=== PATIENT | female | born 1975 | race Caucasian/White ===

== ENCOUNTER → 2019-11-16 17:31 | Outpatient (CLI) | payer OTHER, SELFPAY ==
--- NOTE | 2019-11-16 | DI.MRI.S_ITS ---
PROCEDURE: MR TMJ WO CON INDICATIONS: JAW PAIN TECHNIQUE: Axial T1 spin echo, coronal and sagittal PD fast spin echo through the temporomandibular joints, in both the closed- and open-mouth positions. COMPARISON: None. FINDINGS: Image quality: Limited by patient motion artifact and poor mouth opening. Right: Joint is normally aligned on closed and open-mouth positioning, however mouth is only slightly opened beyond closed mouth position and evaluation of the joint and the open-mouth position is limited. Articular disk demonstrates normal location and morphology. Trace right TMJ joint effusion is noted. No bony erosions or osteophytes. Left: Joint is normally aligned on closed and open-mouth positioning, however mouth is only slightly opened beyond closed mouth position and evaluation of the joint and the open-mouth position is limited. Articular disk demonstrates normal location and morphology. No bony erosions or osteophytes. Partially visualized bilateral level II enlarged neck lymph nodes. IMPRESSION: 1. Image quality limited by patient motion artifact and suboptimal mouth opening. 2. No evidence of articular disc displacement. 3. Trace nonspecific right temporomandibular joint effusion. 4. Large bilateral level II neck lymph nodes which could be reactive or neoplastic. Dictated by: Soni Dias MD, PhD on 11/17/2019 at 12:08 Approved by: Soni Disa MD, PhD on 11/17/2019 at 12:15
== END ==
PROVIDERS: PCP Family Medicine; Referring Provider Dentist Oral and Maxillofacial Surgery; Visit Provider Dentist Oral and Maxillofacial Surgery
DX: R68.84 Jaw pain (principal); R59.0 Localized enlarged lymph nodes
CPT/HCPCS: 70336

== ENCOUNTER → 2021-10-29 11:18 | Outpatient (CLI) | payer OTHER, SELFPAY ==
[2021-10-29 12:08] LABS: COVID19 -Nasal RAPID Negative (Negative)
== END ==
PROVIDERS: PCP Family Medicine; Visit Provider Obstetrics & Gynecology
DX: Z01.812 Encounter for preprocedural laboratory examination (principal); Z20.822 Contact with and (suspected) exposure to COVID-19
CPT/HCPCS: 87635

== ENCOUNTER 2021-10-30 12:24 | Day surgery (SDC) | payer OTHER, SELFPAY ==
[2021-10-29 09:54] VITALS: BMI 31.2
[2021-10-30] VITALS (13 sets, daily range): BP systolic 97–133; BP diastolic 42–80; PULSE 87–115; RESP 12–18; TEMP 36.1–37.5; O2SAT 90–100; BMI 31.2
--- NOTE | 2021-10-30 | PATH_ITS ---
[facility] Accession Number: [id number] . 01 Material submitted: . uterus - CERVIX, UTERUS, BILATERAL FALLOPIAN TUBE REMNANTS . 02 Diagnosis: A. Uterus, Cervix, Bilateral Fallopian Tube Remnants, Hysterectomy and Bilteral Salpingectomy: Myometrium with leiomyoma(s) (up to 8 cm). Nonproliferative benign endometrium with cystic atrophy. Portions of bilateral fallopian tubes with endometrial stroma within muscular wall of one fallopian tube, hydrosalpinx, and benign paratubal cysts; see comment. Inflamed cervix with reactive changes. Negative for dysplasia and malignancy. . COMMENT: Benign endometrial stroma with associated hemorrhage is present within the muscular wall of one fallopian tube which also shows hydrosalpinx. While the features are highly suspicious for endometriosis involving fallopian tube, involvement of the fallopian tube secondary to shedding endometrium and hydrosalpinx cannot be entirely excluded. Clinical corelation is necessary. [facility] 11/04/2021 1426 Local . 02 Electronically signed: . Yasmin Mcintosh MD, Pathologist NPI- [id number] . 01 Gross description: . The specimen is received in formalin, labeled with the patient's name and cervix, uterus, bilateral fallopian tube remnants, is composed of multiple fragments of morcellated uterus which weighs 476 grams. The specimen is received in multiple fragments and measures 19.0 x 16.0 x 6.0 cm in aggregate. An apparent ectocervix is identified. The ectocervix measures 3.5 x 2.2 cm. The cervical os is slit-like and measures 1.0 x 0.1 cm. The ectocervical mucosa is cohen-white and smooth. An anterior and a posterior aspect cannot be made out. The fragment with cervix is bivalved to reveal a cohen-pink endometrial cavity which measures 4.0 x 0.2 cm. Sorter/Assay Tech sections of the cervix and endocervix are submitted. A fallopian tube is identified on one of the fragments and it measures 3.0 cm in length by 0.7 cm in diameter. The surface is cohen-white, smooth and shiny. Sectioning reveals pinpoint lumen. A possible paratubal cyst measuring 0.6 x 0.5 cm is identified and is filled with clear fluid. Sorter/Assay Tech sections of the fallopian tube and the cyst are submitted. Fimbriae are not identified. A second fallopian tube is identified on one of the larger fragments. It measures 2.7 cm in length by 0.5 cm in diameter. The serosal surface is cohen-pérez and smooth. Sectioning reveals a pinpoint lumen. Sorter/Assay Tech sections are submitted. One of the fragments show cohen-brown to cohen-white possible endometrium which measures 4.5 x 1.0 cm. No discrete lesions are identified. Sorter/Assay Tech sections submitted. The rest of the fragments are composed of cohen-white whorled nodules which range in size from 8.0 x 7.0 x 6.0 cm to 0.5 x 0.5 x 0.5 cm. The cut surface is cohen-white and whorled without areas of necrosis, cystic degeneration or hemorrhage. In the largest fragment, the largest nodule appears to be subserosal. Sorter/Assay Tech sections submitted. . Summary of Sections: A1 - Cervix. A2 - Possible endocervical mucosa. A3 - First fallopian tube with possible paraovarian cyst. A4 - Second fallopian tube. A5-A6 - Possible endomyometrium. A7-A9 - Sorter/Assay Tech sections of leiomyomas. ([id number] ) /MRV 10/31/[address] [place] [address] . 02 Pathologist provided ICD-10: D25.9 . 02 CPT . 988515 Specimen Comment: A courtesy copy of this report has been sent to [phone] Performed at: 01 [facility] [address] [id number] MD Armin Graves MD Phone: [phone] Performed at: 02 [facility] [address] [place], [place] [id number] MD Lianna Hill MD Phone: [phone]
[2021-10-30] MEDS: LACTATED RINGERS 1,000 ML 100 ML IV ×3 (13:01→16:50)
[2021-10-30 13:22] LABS: Add Manual Diff / Slide Review NO; Basophils Absolute Auto 100 /uL (0-100); Basophils Percent Auto 0.8 % (0-2); Eosinophils Absolute Auto 100 /uL (0-450); Hematocrit 35.5 % (36-46); Hemoglobin 11.1 g/dL (12.0-16.0); Lymphocytes Absolute Auto 2500 /uL (1100-4500); Lymphocytes Percent Auto 34.5 % (25-40); Mean Corpuscular HGB Conc 31.2 % (30-36); Mean Corpuscular Hemoglobin 21.6 PG (26-34); Mean Corpuscular Volume 69.2 fL (80-100); Monocytes Absolute Auto 800 /uL (0-900); Monocytes Percent Auto 10.6 % (3-14); Neutrophils Absolute Auto 3800 /uL (1500-7000); Neutrophils Percent Auto 52.1 % (50-75); Platelet Count 319 X10^3/uL (150-400); Red Blood Cell Count 5.13 X10^6/uL (4.0-5.2); White Blood Cell Count 7.3 X10^3/uL (4.5-11.0)
--- NOTE | 2021-10-30 13:26 | PM.PREOP ---
Pre-operative Note COVID-19 COVID-19 status: Negative Result date/Date tested (Pos, Neg/Pending): 10/29/21 Criteria for continued procedure: Non-surgical alternatives not available or appropriate per current SOC Interval Note History & Physical reviewed/Exam performed by Physician: Yes Changes to H&P: No
[2021-10-30 13:42] LABS: Anisocytosis 1+; Hypochromasia 2+; Poikilocytosis 1+
[2021-10-30 13:45] LABS: BUN Creatinine Ratio 10.2 (6-22); Blood Urea Nitrogen 9 mg/dL (7-17); Calcium 9.1 mg/dL (8.4-10.2); Carbon Dioxide 25 mmol/L (22-32); Chloride 107 mmol/L (98-107); Estimated Glomerular Filt Rate > 60.0 mL/min (>60); Glucose 97 mg/dL (70-100); HEMOLYSIS < 15 (0-50); Potassium 4.7 mmol/L (3.4-5.1); Sodium 139 mmol/L (137-145)
--- NOTE | 2021-10-30 13:53 | SUR.OPER ---
Lithotomy on padded OR bed. Nunica Pad Positioner under torso. Head on pillow, arms padded and tucked at sides. Legs secured in padded yellow fins stirrups.
[2021-10-30] MEDS: CEFAZOLIN 2 GM/20 ML SYRINGE IV (14:22)
[2021-10-30] MEDS: BUPIVACAINE 0.5% (PF) 30 ML, EPINEPHrine 0.15 MG INJ (14:46)
--- NOTE | 2021-10-30 17:30 | PM.GYNOP.1 ---
Operative Date/Time/Diagnoses Date of procedure: 11/01/21 Time of procedure: 14:30 Pre-op diagnosis: uterus with large fundal fibroid, chronic iron deficiency anemia in the setting of menorrhagia. Post-op diagnosis: same Procedure & Clinicians Procedure: Procedures Operation Date: 10/30/21 13:30 Actual Procedure Side Surgeon p Laparoscopic Assisted Vaginal Hysterectomy w. bilateral removal of fallopian tube remnants Felisha Barragan MD Indications: chronic iron deficiency in the setting of large uterine fibroid and menorrhagia Surgeon: Felisha Barragan Newspaper Delivery Counselor: José Antonio Kramer Anesthesia Type: General Operative Notes Findings: Large multifibroid uterus with large fundal, midline fibroid approx. 10cm in size. Normal vulva, vagina, cervix. Normal fallopian tube remnants, ovaries. Normal abdominal survey, though appendix not visualized. N Closure Type: primary Specimen(s): portion of left tube, portion of right tube and uterus Applied: catheter Estimated blood loss (mL): 750 Procedure in detail: After proper consents were obtained, the patient was taken to the operating room. General anesthesia was induced, and she was placed in the dorsal lithotomy position and prepped and draped in the normal sterile fashion. A mendoza catheter was placed, and a speculum placed in the patient's vagina. A single tooth tenaculum was applied to the anterior lip of the cervix, and hegar dilators used to dilate the cervix to 6mm with gentle pressure. A uterine manipulator was gently inserted and the balloon inflated to 5ccs. The tenaculum and speculum were removed from the vagina. Attention was then turned to the abdomen, where 1cc of .25% marcaine with epinephrine was used to infiltrate the skin just below the umbilicus. A scalpel was used to make a 5mm incision, towel clamps were applied and used to elevate the anterior abdominal wall, and a Veress needle gently inserted into the abdomen. Intraperitoneal placement was confirmed with a drop of normal saline passed through the veress needle with gravity, and CO2 used to insufflate the abdomen to 15mmHg. A 5mm trocar and sleeve were placed into the abdomen through this incision, using the towel clamps to elevate the abdominal wall, and intraperitoneal placement was confirmed visually with insertion of the laparoscope. Abdominal survey at this time was normal, and lateral ports were placed under direct visualization. These were placed on the left and right, 8cm from the umbilicus and after infiltration of 1mm of local anesthetic as above. The patient was placed in trendelenburg position, and a blunt probe used to gently push the bowel out of the pelvis. The ovaries and fallopian tube remnants appeared normal bilaterally. A atraumatic grasper was used to elevate the remnant of the left fallopian tube, and a PK device was used to amputate this remnant, which was removed from the abdomen. The uteroovarian ligament and round ligaments were then cauterized and transected with this device, the anterior and posterior leaflets of the broad ligament and skeletonized and the vesicouterine peritoneum identified. This was transected and a bladder flap created with the PK device and gentle traction. The uterine arteries were identified, and cauterized at the level of the internal os. The same procedure was performed on the patient's right, without complication. Given the midline location of the fibroid, acceptable visualization was able to be obtained throughout this portion of the case. The laparoscopic field was covered with a drape, and attention then turned to the vagina. The mendoza catheter and the uterine manipulator were removed. The cervix was grasped with a double toothed tenaculum on the anterior lip and a single toothed tenaculum on the posterior lip, and the vaginal mucosa infiltrated with 1occs of 0.5% marcaine with epinephrine. An incision was made circumferentially in the vaginal mucosa, with the vaginal mucosa dissected up and away from the cervix with both blunt and sharp dissection. The peritoneal reflection was visualized posteriorly and entry into the posterior cul de sac made sharply with curved prado scissors, and a weighted speculum placed in the posterior cul de sac. The uterosacral ligaments were visualized and clamped with a Dolly clamp, divided and suture ligated using 0 vicryl. The anterior vaginal mucosa was dissected further from the cervix and an anterior colpotomy made with sharp dissection, and a right angle inserted for further retraction and protection of the bladder. The tenaculae were used to maintain downward traction on the cervix. The Dolly clamp was used to clamp the cardinal and broad ligaments, and these divided and suture ligated with 0 vicryl. Sequential bites were taken until we reached the site of laparoscopic dissection bilaterally. The cervix was brought through the vaginal cuff, and the uterus and fibroids were carefully morcellated as necessary to allow removal of the specimen. Due to the size of the fibroid, this morcellation process took 40 minutes, and was notable for significant back bleeding. The vaginal cuff was closely inspected and found to be hemostatic. The uterine artery and uterosacral pedicles were inspected and found to be hemostatic. The vaginal cuff was closed vertically with 0 vicryl in a running, locked fashion, with two sutures and making sure to incorporate the uterosacral pedicles. A mendoza catheter was replaced. Attention was then returned to abdomen, and the abdomen reinsufflated through the ports that had been left in place. The abdomen was irrigated and cleared of all clots, and the fallopian tube pedicles, vaginal cuff, and rest of the pelvis carefully inspected and found to be hemostatic. A repeat abdominal survey was normal. The laparoscope was removed from the abdomen, the insufflating gas allowed to escape, and the skin at all 3 incisions closed with 4-0 biosyn, then covered with steri strips and bandages. The mendoza catheter was found to be draining clear, light yellow urine. The patient tolerated the procedure well, all counts were correct, 2g of Ancef were given at the beginning of the case, and SCDs were in place throughout. The patient was transported to PACU in stable condition. Complications: none Post-operative Condition: stable Disposition: PACU Plan for aftercare: Routine postop care
[2021-10-30] MEDS: LACTATED RINGERS 1,000 ML 125 ML IV (18:26)
--- NOTE | 2021-10-30 18:35 | PC.NURSE ---
Patient alert, oriented denied pain and nausea. Jessica patent, patient oriented to room and call light.
[2021-10-30] MEDS: HYDROMORPHONE 1 MG INJ 0.5 MG IV (20:32)
[2021-10-30] MEDS: SODIUM CHLORIDE 0.9% FLUSH 10 ML IV (20:32)
[2021-10-30] MEDS: ALPRAZolam 0.25 MG TABLET 1 MG PO (20:35)
[2021-10-30] MEDS: IBUPROFEN 400 MG TABLET PO (20:35)
[2021-10-30] MEDS: DOCUSATE 100 MG CAPSULE PO (20:36)
[2021-10-31] VITALS (13 sets, daily range): BP systolic 97–126; BP diastolic 58–80; PULSE 75–96; RESP 16–19; TEMP 36.6–38; O2SAT 95–100
[2021-10-31] MEDS: IBUPROFEN 400 MG TABLET PO (01:51)
[2021-10-31] MEDS: HYDROMORPHONE 1 MG INJ 0.5 MG IV ×2 (01:52→07:24)
[2021-10-31] MEDS: LACTATED RINGERS 1,000 ML 125 ML IV (02:03)
--- NOTE | 2021-10-31 02:50 | PC.NURSE ---
Assumed care of patient @1900 Pt is s/p lap assisted vaginal hysterectomy with salpingectomy. 3 lap sites covered with bandaid are CDI. Abdomen is tender to touch A&Ox4 clearly makes needs known. Pt stated that she has a high tolerance for pain and rates her discomfort as 5, aching but increases to 7 with movement. Medicated for comfort and taught patient to splint with movement and cough.Mendoza catheter to be removed at 0500. Goal to sleep through shift until mendoza and labs were completed.
[2021-10-31 05:19] LABS: Add Manual Diff / Slide Review NO; Basophils Absolute Auto 0 /uL (0-100); Basophils Percent Auto 0.1 % (0-2); Eosinophils Absolute Auto 0 /uL (0-450); Hemoglobin 7.3 g/dL (12.0-16.0); Lymphocytes Absolute Auto 900 /uL (1100-4500); Lymphocytes Percent Auto 9.4 % (25-40); Mean Corpuscular HGB Conc 31.9 % (30-36); Mean Corpuscular Hemoglobin 21.7 PG (26-34); Monocytes Absolute Auto 600 /uL (0-900); Monocytes Percent Auto 6.4 % (3-14); Neutrophils Absolute Auto 7600 /uL (1500-7000); Neutrophils Percent Auto 84.1 % (50-75); Platelet Count 230 X10^3/uL (150-400); Red Blood Cell Count 3.39 X10^6/uL (4.0-5.2); Red Cell Distribution Width 19.6 % (11.6-14.8)
[2021-10-31 05:32] LABS: BUN Creatinine Ratio 11.1 (6-22); Blood Urea Nitrogen 7 mg/dL (7-17); Carbon Dioxide 26 mmol/L (22-32); Chloride 105 mmol/L (98-107); Estimated Glomerular Filt Rate > 60.0 mL/min (>60); Glucose 143 mg/dL (70-100); HEMOLYSIS < 15 (0-50); Potassium 4.2 mmol/L (3.4-5.1); Sodium 132 mmol/L (137-145)
[2021-10-31 07:16] LABS: Anisocytosis 1+; Microcytosis 2+; Poikilocytosis 1+
[2021-10-31 07:17] LABS: Ovalocytes 1+
[2021-10-31] MEDS: SODIUM CHLORIDE 0.9% FLUSH 10 ML IV ×3 (07:24→21:03)
[2021-10-31] MEDS: ESCITALOPRAM 10 MG TABLET PO (08:29)
--- NOTE | 2021-10-31 08:51 | P.PN_ITS ---
Subjective Subjective Date Patient Seen: 10/31/21 Time Patient Seen: 08:51 Interval history: This patient is admitted for a laparoscopically assisted vaginal hysterectomy in the setting of several large fibroids. The procedure was able to be completed as planned, though the patient had significant intraoperative blood loss in part due to back bleeding from the fibroids. This morning, the patient reports one episode of vaginal bleeding, but her pain is well controlled, she is eating, ambulating, and voiding, and she has passed some flatus. We discussed transition to PO pain medications and repeat CBC later this AM. Exam Vital Signs (past 8 hours): - 10/31/21 01:20 10/31/21 05:19 10/31/21 07:23 Temperature 99 F 99.5 F 99.1 F Pulse Rate 75 79 86 Respiratory Rate 16 16 19 Blood Pressure 99/63 106/71 126/80 Pulse Oximetry 96 97 100 Oxygen Delivery Method Room Air Oxygen Flow Rate 0 Const General: cooperative, healthy appearing, comfortable and well groomed Resp Effort & Inspection: normal respiratory effort Auscultation: clear to auscultation bilaterally Cardio Rate: regular rate Rhythm: regular rhythm GI Palpation: soft and No tender Other: incisions c/d/i External Female Exam: normal external appearance Other: scant dried blood on ness pad Extrem General: normal to inspection Objective Labs Result Diagrams: 10/31/21 04:40 10/31/21 04:40 Labs: Laboratory Results - last 24 hr 10/30/21 10/30/21 10/30/21 06:40 Unknown Unknown WBC 7.3 RBC 5.13 Hgb 11.1 L Hct 35.5 L MCV 69.2 L MCH 21.6 L MCHC 31.2 RDW 20.0 H Plt Count 319 Neut % (Auto) 52.1 Lymph % (Auto) 34.5 [place] % (Auto) 10.6 Eos % (Auto) 2.0 Baso % (Auto) 0.8 Neut # (Auto) 3800 Lymph # (Auto) 2500 [place] # (Auto) 800 Eos # (Auto) 100 Baso # (Auto) 100 RBC Morphology Not Reportable Hypochromasia 2+ H Poikilocytosis 1+ H Anisocytosis 1+ H Microcytosis Ovalocytes Sodium 139 Potassium 4.7 Chloride 107 Carbon Dioxide 25 BUN 9 Creatinine 0.88 Estimated GFR > 60.0 BUN/Creatinine Ratio 10.2 Glucose 97 Calcium 9.1 Blood Type A Positive Antibody Screen Negative 10/31/21 10/31/21 04:40 04:40 WBC 9.0 RBC 3.39 L Hgb 7.3 L Hct 23.0 L MCV 68.0 L MCH 21.7 L MCHC 31.9 RDW 19.6 H Plt Count 230 Neut % (Auto) 84.1 H D Lymph % (Auto) 9.4 L D [place] % (Auto) 6.4 Eos % (Auto) 0.0 L Baso % (Auto) 0.1 Neut # (Auto) 7600 H Lymph # (Auto) 900 L [place] # (Auto) 600 Eos # (Auto) 0 Baso # (Auto) 0 RBC Morphology See below Hypochromasia Poikilocytosis 1+ H Anisocytosis 1+ H Microcytosis 2+ H Ovalocytes 1+ H Sodium 132 L Potassium 4.2 Chloride 105 Carbon Dioxide 26 BUN 7 Creatinine 0.63 Estimated GFR > 60.0 BUN/Creatinine Ratio 11.1 Glucose 143 H Calcium 8.0 L Blood Type Antibody Screen [facility] Medical History Abnormal Pap smear of cervix (~2006) Anxiety (~2013) Cataracts, bilateral (~2017) Chicken pox (~1982) Chronic back pain (~2019) Colon polyps Dysplastic nevus (~2005) Frequent UTI GERD (gastroesophageal reflux disease) Heavy menstrual period (~2017) Human papilloma virus (~2006) Irregular menstrual cycle (~2017) Irritable bowel syndrome Ovarian cyst Painful menstrual periods (~2017) PTSD (post-traumatic stress disorder) Recurrent sinusitis (~1999) Wears glasses Surgical History Anesthesia H/O LEEP (~2014) History of endometrial ablation (~2006) History of nasal septoplasty (~1999) History of oral surgery (~2019) S/P tubal ligation (~1998) Skin cancer [place] teeth removed (~1999) Family History Father Colon cancer Lung cancer COPD (chronic obstructive pulmonary disease) History of heart disease Mur[place]'s esophagus Mother Depression Mental health problem Sister Depression Anxiety Mental health problem Grandfather Pneumonia Grandmother COPD (chronic obstructive pulmonary disease) Grandmother History of heart disease Daughter Anxiety Mental health problem Daughter Osteosarcoma Social History household members: spouse Smoking Status: Never smoker alcohol intake: current Assessment & Plan Post-op Postoperative Procedures: Procedures Operation Date: 10/30/21 13:30 Actual Procedure Side Surgeon p Laparoscopic Assisted Vaginal Hysterectomy w. bilateral removal of fallopian tube remnants Felisha Barragan MD Postoperative day: 1 Postoperative status: doing well Postoperative status narrative: This patient reports feeling well this AM, and is meeting postoperative goals appropriately especially given that her hysterectomy was late in the day. Her hgb and bleeding can be explained by significant intraoperative blood loss, and she has no clinical signs of ongoing bleeding. We will repeat a CBC later this AM. Postoperative plan: routine post-op care, see orders and ambulate Time Spent With Patient Time with patient: 15-24 minutes Quality VTE Deep Vein Thrombosis/Pulmonary Embolism Present on Admission: No
[2021-10-31] MEDS: OXYCODONE IR 5 MG TABLET PO ×3 (09:42→18:46)
[2021-10-31] MEDS: FERROUS SULFATE 325 MG TABLET PO (09:42)
[2021-10-31 10:21] LABS: Add Manual Diff / Slide Review NO; Basophils Absolute Auto 0 /uL (0-100); Basophils Percent Auto 0.1 % (0-2); Eosinophils Absolute Auto 0 /uL (0-450); Lymphocytes Absolute Auto 1600 /uL (1100-4500); Lymphocytes Percent Auto 13.2 % (25-40); Mean Corpuscular HGB Conc 30.9 % (30-36); Mean Corpuscular Hemoglobin 21.3 PG (26-34); Mean Corpuscular Volume 68.9 fL (80-100); Monocytes Absolute Auto 1500 /uL (0-900); Monocytes Percent Auto 12.2 % (3-14); Neutrophils Absolute Auto 9000 /uL (1500-7000); Neutrophils Percent Auto 74.5 % (50-75); Platelet Count 228 X10^3/uL (150-400); Red Blood Cell Count 3.19 X10^6/uL (4.0-5.2); Red Cell Distribution Width 19.8 % (11.6-14.8)
[2021-10-31 10:25] LABS: Hemoglobin 6.8 g/dL (12.0-16.0)
--- NOTE | 2021-10-31 10:35 | PC.NURSE ---
Addendum entered by Jacklyn Matthew R.N. 10/31/21 17:02: First unit RBC infusing as ordered, patient tolerating well. Addendum entered by Jacklyn Matthew R.N. 10/31/21 15:01: 1400 H/H 6.3/20.7 Dr Barragan paged and notified, MD up to assess patient, order for blood transfusion placed. Original Note: Patient hemoglobin 6.8, Dr Barragan paged and made aware. Patient BP 126/76 HR 83. Patient just up to the bathroom, denies an increase in lightheadedness, but states I've been light headed on and off now for months. Scant bloody drainage to ness pad.
[2021-10-31] MEDS: IRON SUCROSE 100 MG in SODIUM CHLORIDE 0.9% 100 ML 420 ML IV (11:27)
[2021-10-31 12:17] LABS: Microcytosis 2+; Ovalocytes 1+
[2021-10-31 14:42] LABS: Add Manual Diff / Slide Review NO; Basophils Absolute Auto 0 /uL (0-100); Basophils Percent Auto 0.1 % (0-2); Eosinophils Absolute Auto 0 /uL (0-450); Lymphocytes Absolute Auto 1900 /uL (1100-4500); Lymphocytes Percent Auto 16.3 % (25-40); Mean Corpuscular HGB Conc 30.6 % (30-36); Mean Corpuscular Hemoglobin 21.1 PG (26-34); Mean Corpuscular Volume 69.1 fL (80-100); Monocytes Absolute Auto 1300 /uL (0-900); Monocytes Percent Auto 11.8 % (3-14); Neutrophils Absolute Auto 8200 /uL (1500-7000); Neutrophils Percent Auto 71.8 % (50-75); Platelet Count 229 X10^3/uL (150-400); White Blood Cell Count 11.4 X10^3/uL (4.5-11.0)
[2021-10-31 14:46] LABS: Hemoglobin 6.3 g/dL (12.0-16.0)
[2021-10-31 14:47] LABS: Hematocrit 20.7 % (36-46)
--- NOTE | 2021-10-31 15:04 | P.PN_ITS ---
Subjective Subjective Date Patient Seen: 10/31/21 Time Patient Seen: 15:30 Interval history: Patient has had a small hgb drop, but we discussed transfusion of 2x pRBCs and the patient is amenable. Patient remains clinically stable, well appearing with normal vitals, no abdominal tenderness, good pain control with 2x 5mg oxycodone since admission. Exam Vital Signs (past 8 hours): - 10/31/21 07:23 10/31/21 10:34 10/31/21 14:30 Temperature 99.1 F 99.0 F Pulse Rate 86 83 89 Respiratory Rate 19 18 18 Blood Pressure 126/80 126/76 100/62 Pulse Oximetry 100 97 99 Oxygen Delivery Method Room Air Oxygen Flow Rate 0 Const General: cooperative, healthy appearing, comfortable and well groomed GI Palpation: soft and No tender External Female Exam: normal external appearance (bleeding minimal) Objective Labs Result Diagrams: 11/01/21 05:07 10/31/21 04:40 Labs: Laboratory Results - last 24 hr 10/30/21 10/31/21 10/31/21 06:40 04:40 04:40 WBC 9.0 RBC 3.39 L Hgb 7.3 L Hct 23.0 L MCV 68.0 L MCH 21.7 L MCHC 31.9 RDW 19.6 H Plt Count 230 Neut % (Auto) 84.1 H D Lymph % (Auto) 9.4 L D [place] % (Auto) 6.4 Eos % (Auto) 0.0 L Baso % (Auto) 0.1 Neut # (Auto) 7600 H Lymph # (Auto) 900 L [place] # (Auto) 600 Eos # (Auto) 0 Baso # (Auto) 0 RBC Morphology See below Poikilocytosis 1+ H Anisocytosis 1+ H Microcytosis 2+ H Ovalocytes 1+ H Sodium 132 L Potassium 4.2 Chloride 105 Carbon Dioxide 26 BUN 7 Creatinine 0.63 Estimated GFR > 60.0 BUN/Creatinine Ratio 11.1 Glucose 143 H Calcium 8.0 L Crossmatch See Detail 10/31/21 10/31/21 10:09 14:27 WBC 12.0 H 11.4 H RBC 3.19 L 3.00 L Hgb 6.8 L* 6.3 L* Hct 22.0 L 20.7 L* MCV 68.9 L 69.1 L MCH 21.3 L 21.1 L MCHC 30.9 30.6 RDW 19.8 H 20.0 H Plt Count 228 229 Neut % (Auto) 74.5 71.8 Lymph % (Auto) 13.2 L 16.3 L [place] % (Auto) 12.2 11.8 Eos % (Auto) 0.0 L 0.0 L Baso % (Auto) 0.1 0.1 Neut # (Auto) 9000 H 8200 H Lymph # (Auto) 1600 1900 [place] # (Auto) 1500 H 1300 H Eos # (Auto) 0 0 Baso # (Auto) 0 0 RBC Morphology See below Poikilocytosis Anisocytosis Microcytosis 2+ H Ovalocytes 1+ H Sodium Potassium Chloride Carbon Dioxide BUN Creatinine Estimated GFR BUN/Creatinine Ratio Glucose Calcium Crossmatch [facility] Medical History Abnormal Pap smear of cervix (~2006) Anxiety (~2013) Cataracts, bilateral (~2017) Chicken pox (~1982) Chronic back pain (~2019) Colon polyps Dysplastic nevus (~2005) Frequent UTI GERD (gastroesophageal reflux disease) Heavy menstrual period (~2017) Human papilloma virus (~2006) Irregular menstrual cycle (~2017) Irritable bowel syndrome Ovarian cyst Painful menstrual periods (~2017) PTSD (post-traumatic stress disorder) Recurrent sinusitis (~1999) Wears glasses Surgical History Anesthesia H/O LEEP (~2014) History of endometrial ablation (~2006) History of nasal septoplasty (~1999) History of oral surgery (~2019) S/P tubal ligation (~1998) Skin cancer [place] teeth removed (~1999) Family History Father Colon cancer Lung cancer COPD (chronic obstructive pulmonary disease) History of heart disease [place]'s esophagus Mother Depression Mental health problem Sister Depression Anxiety Mental health problem Grandfather Pneumonia Grandmother COPD (chronic obstructive pulmonary disease) Grandmother History of heart disease Daughter Anxiety Mental health problem Daughter Osteosarcoma Social History household members: spouse Smoking Status: Never smoker alcohol intake: current Assessment & Plan Post-op Postoperative Procedures: Procedures Operation Date: 10/30/21 13:30 Actual Procedure Side Surgeon p Laparoscopic Assisted Vaginal Hysterectomy w. bilateral removal of fallopian tube remnants Felisha Barragan MD Postoperative day: 1 Postoperative status: anemia Postoperative status narrative: Patient for transfusion of 2x pRBCs, clinically stable. s/p iron infusion. Postoperative plan: see orders Time Spent With Patient Time with patient: less than 15 minutes Quality VTE Deep Vein Thrombosis/Pulmonary Embolism Present on Admission: No
--- NOTE | 2021-10-31 15:15 | CM.IDA ---
Initial DCP Assessment Note Pt is a 46 yo female, resident of [place], now POD#1 from Laparoscopic Assisted Vaginal Hysterectomy w. bilateral removal of fallopian tube remnants by Dr Barragan PCP: Anika Keating Payer: Moe Reviewed chart, pt discussed in multidisciplinary rounds this morning. 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 According to chart review at 1500- patient receiving blood transfusion today d/t H/H 6.3/20.7; Dr Barragan to assess this afternoon/evening No needs expected from DC planning team although will remain available in case this changes before DC. BARBARA Gupta
[2021-10-31 15:31] LABS: Anisocytosis 2+; Microcytosis 1+; Ovalocytes 2+; Poikilocytosis 2+; Tear Drop Cells 1+
[2021-10-31] MEDS: ALPRAZolam 0.25 MG TABLET 1 MG PO (21:18)
[2021-11-01] MEDS: OXYCODONE IR 5 MG TABLET PO ×2 (00:44→06:46)
[2021-11-01 00:49] VITALS: BP 116/72; PULSE 95; RESP 14; TEMP 37; O2SAT 99
[2021-11-01 05:19] LABS: Basophils Absolute Auto 0 /uL (0-100); Basophils Percent Auto 0.3 % (0-2); Eosinophils Absolute Auto 0 /uL (0-450); Eosinophils Percent Auto 0.5 % (2-4); Hemoglobin 8.3 g/dL (12.0-16.0); Lymphocytes Absolute Auto 3300 /uL (1100-4500); Lymphocytes Percent Auto 34.5 % (25-40); Mean Corpuscular Hemoglobin 23.2 PG (26-34); Mean Corpuscular Volume 72.7 fL (80-100); Monocytes Absolute Auto 900 /uL (0-900); Monocytes Percent Auto 9.3 % (3-14); Neutrophils Absolute Auto 5300 /uL (1500-7000); Neutrophils Percent Auto 55.4 % (50-75); Platelet Count 184 X10^3/uL (150-400); Red Blood Cell Count 3.56 X10^6/uL (4.0-5.2); Red Cell Distribution Width 21.1 % (11.6-14.8); White Blood Cell Count 9.5 X10^3/uL (4.5-11.0)
[2021-11-01 05:32] LABS: Add Manual Diff / Slide Review SLIDE REVIEW; Hematocrit 25.8 % (36-46)
[2021-11-01 06:40] VITALS: BP 108/61; PULSE 91; RESP 16; TEMP 37.2; O2SAT 97
[2021-11-01 08:38] VITALS: BP 95/56; PULSE 91; RESP 16; TEMP 36.8; O2SAT 98
[2021-11-01] MEDS: ESCITALOPRAM 10 MG TABLET PO (08:49)
[2021-11-01] MEDS: FERROUS SULFATE 325 MG TABLET PO (08:49)
[2021-11-01] MEDS: SODIUM CHLORIDE 0.9% FLUSH 10 ML IV (08:51)
--- NOTE | 2021-11-01 09:39 | P.DS_ITS ---
History of Present Illness History of Present Illness Date Patient Seen: 11/01/21 Time Patient Seen: 09:30 Chief complaint: OPB Narrative: This patient is POD#2 s/p laparoscopically assisted vaginal hysterectomy. The surgery was complicated by a large fibroid resulting in larger than average blood loss, and the patient's postoperative course has been complicated by acute blood loss anemia. She has responded appropriately to blood transfusion, and is meeting postoperative goals appropriately for discharge today. Discharge Providers Provider Discharge Date: 11/01/21 Primary care physician: Anika Keating MD Consults: 10/30/21 18:16 Consult to Discharge Planning Routine Comment: Discharge provider: Felisha Barragan MD Summary Hospital Course Discharge Diagnosis: Laparoscopically assisted vaginal hysterectomy Acute blood loss anemia in the setting of chronic iron deficiency anemia Hospital Course: This patient was admitted for [facility]. Her surgery was complicated by a very large fibroid with intraoperative blood loss leading to anemia. The patient remained clinically stable throughout her admission, and responded appropriately to transfusion. She has minimal pain, is voiding, passing flatus, ambulating, and tolerating PO appropriately, and is stable for discharge with routine precautions and follow up. Status at Discharge Cognitive/behavioral status at discharge: oriented Functional status at discharge: independent ambulation Overall status at discharge: patient is progressing back to baseline Time Spent with Patient Time spent: Greater than 30 minutes Exam Vital Signs (past 8 hours): - 11/01/21 06:40 11/01/21 08:38 Temperature 98.9 F 98.3 F Pulse Rate 91 H 91 H Respiratory Rate 16 16 Blood Pressure 108/61 95/56 L Pulse Oximetry 97 98 Oxygen Delivery Method Room Air Oxygen Flow Rate 0 Const General: cooperative, healthy appearing, comfortable and well groomed Resp Effort & Inspection: normal respiratory effort Auscultation: clear to auscultation bilaterally Cardio Rate: regular rate Rhythm: regular rhythm GI Palpation: soft and tender Other: 3 laparoscopic incisions, c/d/i Extrem General: normal to inspection Objective Labs Result Diagrams: 11/01/21 05:07 10/31/21 04:40 Labs: Laboratory Results - last 24 hr 10/30/21 10/31/21 10/31/21 06:40 10:09 14:27 WBC 12.0 H 11.4 H RBC 3.19 L 3.00 L Hgb 6.8 L* 6.3 L* Hct 22.0 L 20.7 L* MCV 68.9 L 69.1 L MCH 21.3 L 21.1 L MCHC 30.9 30.6 RDW 19.8 H 20.0 H Plt Count 228 229 Neut % (Auto) 74.5 71.8 Lymph % (Auto) 13.2 L 16.3 L [place] % (Auto) 12.2 11.8 Eos % (Auto) 0.0 L 0.0 L Baso % (Auto) 0.1 0.1 Neut # (Auto) 9000 H 8200 H Lymph # (Auto) 1600 1900 [place] # (Auto) 1500 H 1300 H Eos # (Auto) 0 0 Baso # (Auto) 0 0 RBC Morphology See below See below Dimorphic RBCs Poikilocytosis 2+ H Anisocytosis 2+ H Microcytosis 2+ H 1+ H Tear Drop Cells 1+ H Ovalocytes 1+ H 2+ H Blood Type A Positive Antibody Screen Negative Crossmatch See Detail 11/01/21 05:07 WBC 9.5 RBC 3.56 L Hgb 8.3 L Hct 25.8 L MCV 72.7 L D MCH 23.2 L MCHC 32.0 RDW 21.1 H Plt Count 184 Neut % (Auto) 55.4 Lymph % (Auto) 34.5 [place] % (Auto) 9.3 Eos % (Auto) 0.5 L Baso % (Auto) 0.3 Neut # (Auto) 5300 Lymph # (Auto) 3300 [place] # (Auto) 900 Eos # (Auto) 0 Baso # (Auto) 0 RBC Morphology See below Dimorphic RBCs * Poikilocytosis Anisocytosis Microcytosis Tear Drop Cells Ovalocytes Blood Type Antibody Screen Crossmatch [facility] Medical History Abnormal Pap smear of cervix (~2006) Anxiety (~2013) Cataracts, bilateral (~2017) Chicken pox (~1982) Chronic back pain (~2019) Colon polyps Dysplastic nevus (~2005) Frequent UTI GERD (gastroesophageal reflux disease) Heavy menstrual period (~2017) Human papilloma virus (~2006) Irregular menstrual cycle (~2017) Irritable bowel syndrome Ovarian cyst Painful menstrual periods (~2017) PTSD (post-traumatic stress disorder) Recurrent sinusitis (~1999) Wears glasses Surgical History Anesthesia H/O LEEP (~2014) History of endometrial ablation (~2006) History of nasal septoplasty (~1999) History of oral surgery (~2019) S/P tubal ligation (~1998) Skin cancer [place] teeth removed (~1999) Family History Father Colon cancer Lung cancer COPD (chronic obstructive pulmonary disease) History of heart disease [place]'s esophagus Mother Depression Mental health problem Sister Depression Anxiety Mental health problem Grandfather Pneumonia Grandmother COPD (chronic obstructive pulmonary disease) Grandmother History of heart disease Daughter Anxiety Mental health problem Daughter Osteosarcoma Social History household members: spouse Smoking Status: Never smoker alcohol intake: current Discharge Assessment & Plan Assessment and Plan Assessment: This patient is stable for discharge on POD#2, meeting postop goals appropriately. She is s/p 2u pRBCs and an IV iron transfusion. Precautions for return were discussed at length. Plan of Treatment: Routine follow up in clinic. Discharge Plan Discharge Plan Patient Disposition: Home Discharge orders & Medications Discharge Orders: Discharge (Order); Ordered 11/01/21 Ordered By: Felisha Barragan Prescriptions: New oxycodone 5 mg tablet 5 mg PO Q6H PRN (Reason: pain) Qty: 20 0RF Rx Instructions: Take as often as every 6 hours for pain Continued omeprazole 40 mg capsule,delayed release(DR/EC) 40 mg PO DAILY 0RF escitalopram oxalate 10 mg tablet 10 mg PO DAILY 0RF alprazolam 1 mg tablet 1 mg PO DAILY PRN (Reason: Anxiety) 0RF Label Comments: take 1/2 to 1 tablet by mouth twice a day if needed for anxiety clonidine HCl 0.3 mg tablet 0.3 mg PO BEDTIME PRN (Reason: Insomnia) 0RF Label Comments: take 1 tablet by mouth at bedtime Follow up/Referrals: Felisha Barragan MD [Physician] - 2 Weeks (s/p [facility]) Anika Keating MD [Primary Care Provider] - Diet/Activity/Treatments Diet: Regular Activity: Nothing in the vagina for 12 weeks. Avoid lifting more than 10 lbs for 6 weeks. If you have increased bleeding, pain, fevers, chills, dizziness, nausea, or any other symptoms, call or come to the emergency department. Skin/Wound/Dressing Care Report to your healthcare provider any signs of infection, such as:: chills, fever, night sweats, increased pain, unusual drainage and unusual redness Visit Report/Discharge Packet Instructions: DI for Hysterectomy, DI for Laparoscopy Stand Alone Forms: Surgery Discharge Discharge Data Primary Care Provider: Anika Keating Attending Provider: Felisha Barragan VTE Deep Vein Thrombosis/Pulmonary Embolism Present on Admission: No
--- NOTE | 2021-11-01 10:34 | PC.NURSE ---
Pt denies discomfort. MD in to see, discharge orders received. SL discontinued intact. RX instructions given w/ understanding. Pt escorted by staff via w/C to waiting vehicle. D/C'd in stable condition.
== END 2021-11-01 10:36 | disposition home or self-care (01) ==
LOC: OR 12:25 → AC 12:28
PROVIDERS: PCP Family Medicine; Referring Provider Obstetrics & Gynecology; Visit Provider Obstetrics & Gynecology
PROC: 0UT9FZZ Resection of Uterus, Via Natural or Artificial Opening With Percutaneous Endoscopic Assistance (ICD-10-PCS; CPT 58552; principal; 2021-10-30 13:30)
DX: N92.0 Excessive and frequent menstruation with regular cycle (principal); D50.9 Iron deficiency anemia, unspecified; F41.9 Anxiety disorder, unspecified; K21.9 Gastro-esophageal reflux disease without esophagitis; D25.9 Leiomyoma of uterus, unspecified; N83.8 Other noninflammatory disorders of ovary, fallopian tube and broad ligament; N70.11 Chronic salpingitis
CPT/HCPCS: 58552; 36415; 36430; 80048; 81025; 85025; 86850; 86900; 86901; P9016; J0171; J0690; J1100; J1170; J1756; J1885; J2405; J2704; J3010